=== PATIENT | female | born 1995 | race Two or more races ===

== ENCOUNTER 2022-12-24 08:56 | Outpatient (CLI) | payer OTHER ==
[~2022-12-24 08:56] MED LIST: DEPAKOTE ER500 MG
== END 2022-12-24 09:46 | disposition home or self-care (01) ==
LOC: PRENATAL 08:56
PROVIDERS: ATTEND Obstetrics & Gynecology Maternal & Fetal Medicine
DX: O35.3XX0 Maternal care for (suspected) damage to fetus from viral disease in mother, not applicable or unspecified (principal); O44.00 Complete placenta previa NOS or without hemorrhage, unspecified trimester; Z3A.19 19 weeks gestation of pregnancy

== ENCOUNTER 2023-03-25 08:19 | Outpatient (CLI) | payer OTHER | END 2023-03-25 08:20 | disposition home or self-care (01) | LOC: PRENATAL 08:19 | PROVIDERS: ATTEND Obstetrics & Gynecology Maternal & Fetal Medicine | DX: O26.849 Uterine size-date discrepancy, unspecified trimester (principal); O36.8199 Decreased fetal movements, unspecified trimester, other fetus; Z3A.32 32 weeks gestation of pregnancy ==

== ENCOUNTER 2023-05-11 14:53 | Outpatient (CLI) | payer OTHER ==
[2023-05-11] MEDS ORDERED: PRENA1 CHEW TA1.4 MG PO (15:08)
[2023-05-11] MEDS ORDERED: SYNTHROID88 MCG PO (15:08)
[2023-05-11 15:24] LABS: HEMATOCRIT 31.4 % (36.0-45.00); HEMOGLOBIN 10.4 g/dL (12.0-15.00); MEAN CELL VOLUME 83.2 fL (80.00-100.00); MEAN CORPUSCULAR HEMOGLOBIN 27.6 pg (27.00-32.0); MEAN CORPUSCULAR HGB CONC 33.2 g/dl (32.0-36.0); PH,URINE 6.5 (5.0-8.0); PLATELET COUNT 95 K/uL (150-450); RED BLOOD COUNT 3.77 M/uL (4.00-6.00); RED CELL DISTRIBUTION WIDTH 16.3 % (11.5-14.5); URINE APPEARANCE Clear; URINE BILIRRUBIN Negative (NEGATIVE); URINE BLOOD Negative; URINE COLOR Yellow; URINE GLUCOSE Negative (NEGATIVE); URINE LEUKOCYTE Negative; URINE NITRATE Negative; URINE PROTEIN Trace (NEGATIVE); URINE UROBILINOGEN 0.2 E.U./dl
[2023-05-11 15:27] LABS: URINE BACTERIA 6600.7 uL (0.0-1933); URINE EPITHELIAL CELLS 36.4 uL (0.0-38.8); URINE RBC 34.9 uL (0.0-20.8); URINE WBC 59.3 uL (0.0-23.2)
[2023-05-11] MEDS ORDERED: RINGERS SOLUTION,LACTATED 1,000 ML IV SCH (15:45)
== END 2023-05-11 19:19 | disposition home or self-care (01) ==
LOC: OBS/DEL 14:53
PROVIDERS: Obstetrics & Gynecology; ATTEND Obstetrics & Gynecology
DX: O26.893 Other specified pregnancy related conditions, third trimester (principal); Z3A.38 38 weeks gestation of pregnancy; O26.849 Uterine size-date discrepancy, unspecified trimester; O36.8199 Decreased fetal movements, unspecified trimester, other fetus

== ENCOUNTER 2023-05-18 03:12 | Inpatient (IN) | payer OTHER ==
[~2023-05-18] VITALS: Ht 154.9 cm; Wt 3.2 kg
[~2023-05-18 03:12] MED LIST changes: +PRENA1 CHEW TA1.4 MG PO; +SYNTHROID88 MCG PO
[2023-05-18] MEDS ORDERED: RINGERS SOLUTION,LACTATED 1,000 ML IV SCH ×2 (03:30→14:00)
[2023-05-18 03:41] LABS: PH,URINE 6.5 (5.0-8.0); URINE APPEARANCE Clear; URINE BILIRRUBIN Negative (NEGATIVE); URINE BLOOD Negative; URINE COLOR Yellow; URINE GLUCOSE Negative (NEGATIVE); URINE LEUKOCYTE Negative; URINE NITRATE Negative; URINE PROTEIN Trace (NEGATIVE)
[2023-05-18 03:42] LABS: URINE BACTERIA 336.4 uL (0.0-1933); URINE EPITHELIAL CELLS 9.4 uL (0.0-38.8); URINE RBC 3.3 uL (0.0-20.8); URINE WBC 5.2 uL (0.0-23.2)
[2023-05-18 03:59] LABS: HEMATOCRIT 32.9 % (36.0-45.00); HEMOGLOBIN 10.7 g/dL (12.0-15.00); MEAN CELL VOLUME 83.4 fL (80.00-100.00); MEAN CORPUSCULAR HEMOGLOBIN 27.2 pg (27.00-32.0); MEAN CORPUSCULAR HGB CONC 32.6 g/dl (32.0-36.0); RED BLOOD COUNT 3.95 M/uL (4.00-6.00); RED CELL DISTRIBUTION WIDTH 16.8 % (11.5-14.5)
[2023-05-18 04:00] LABS: PLATELET COUNT 94 K/uL (150-450)
[2023-05-18] MEDS ORDERED: AMPICILLIN SODIUM 2,000 MG VIAL ONE (04:08)
[2023-05-18 04:10] LABS: INR 1.01; PARTIAL THROMBOPLASTIN TIME 34.2 SECONDS (22.0-34.0); PROTHROMBIN TIME 10.6 SECONDS (9.0-11.5)
[2023-05-18] MEDS ORDERED: AMPICILLIN SODIUM 2,000 MG VIAL IV STA (04:12)
[2023-05-18 04:13] LABS: ALBUMIN 2.6 gm/dL (3.4-5.0); BILIRUBIN TOTAL 0.28 mg/dL (0.3-1.2); CALCIUM 9.1 mg/dL (8.5-10.1); CREATININE SERUM 0.72 mg/dL (0.55-1.02); GFR 97.17; GLOBULINA 3.5 G/DL (2.4-3.5); POTASSIUM 4.28 mEq/L (3.5-5.1); TOTAL PROTEIN 6.1 gm/dL (6.4-8.2)
[2023-05-18] MEDS ORDERED: AMPICILLIN SODIUM 1,000 MG VIAL IV SCH (08:00)
[2023-05-18] MEDS ORDERED: CEFAZOLIN SODIUM 1,000 MG VIAL ONE (11:54)
[2023-05-18] MEDS ORDERED: OXYTOCIN 10 UNITS/ML VIAL ONE ×2 (11:55→16:16)
[2023-05-18] MEDS ORDERED: ERYTHROMYCIN BASE 1 GM TUBE OP ONE ×2 (11:55→14:45)
[2023-05-18] MEDS ORDERED: METHYLERGONOVINE MALEATE 0.2 MG/ML AMPUL ONE (13:40)
[2023-05-18] MEDS ORDERED: KETOROLAC TROMETHAMINE 60 MG VIAL IM STA (13:52)
[2023-05-18] MEDS ORDERED: PROMETHAZINE HCL 25 MG/ML AMPUL IM PRN (14:00)
[2023-05-18] MEDS ORDERED: CHLORHEXIDINE GLUCONATE 120 ML BOTTLE TP SCH (14:00)
[2023-05-18] MEDS ORDERED: OXYTOCIN 1,000 ML IV SCH (14:00)
[2023-05-18] MEDS ORDERED: MEPERIDINE HCL/PF 50 MG/ML VIAL IM PRN (14:00)
[2023-05-18] MEDS ORDERED: ERYTHROMYCIN BASE 1 GM TUBE OP SCH (14:00)
[2023-05-18] MEDS ORDERED: METHYLERGONOVINE MALEATE 0.2 MG TABLET PO ONE (14:45)
[2023-05-18] MEDS ORDERED: OXYTOCIN 10 UNIT/ML (10ML) IV ONE (14:45)
[2023-05-18 14:48] LABS: ABG PH 7.319 (7.35-7.45); ABG PO2 22.9 mmHg (80-100); BASE EXCESS -3.2 mmol/l; BICARBONATE 23.1 mmol/l (23-25); Tco2 24.5 mmol/l
[2023-05-18 14:49] LABS: o2 21 %
[2023-05-18] MEDS ORDERED: KETOROLAC TROMETHAMINE 60 MG VIAL IM ONE (15:35)
[2023-05-18] MEDS ORDERED: ONDANSETRON HCL 2 MG/ML VIAL ONE (15:36)
[2023-05-18] MEDS ORDERED: AMPICILLIN SODIUM 1,000 MG VIAL ONE (16:02)
[2023-05-18 20:31] LABS: HEMATOCRIT 33.7 % (36.0-45.00); HEMOGLOBIN 10.9 g/dL (12.0-15.00); MEAN CELL VOLUME 83.2 fL (80.00-100.00); MEAN CORPUSCULAR HEMOGLOBIN 26.8 pg (27.00-32.0); MEAN CORPUSCULAR HGB CONC 32.3 g/dl (32.0-36.0); RED BLOOD COUNT 4.05 M/uL (4.00-6.00); RED CELL DISTRIBUTION WIDTH 16.6 % (11.5-14.5)
[2023-05-18 20:32] LABS: PLATELET COUNT 89 K/uL (150-450)
[2023-05-19] MEDS ORDERED: OxyCODONE HCL/APAP UD (PERCOCET) PO PRN (09:00)
== END 2023-05-20 16:26 | disposition home or self-care (01) | DRG 788 ==
LOC: OBS/DEL 03:12 → O/R 04:05 → OBS/DEL 04:05 → OB/GYN 04:05 → LDR 04:05 → O/R 13:13 → OB/GYN 14:54
PROVIDERS: Specialist; ADMIT Obstetrics & Gynecology; ATTEND Obstetrics & Gynecology
PROC: 4A1HXCZ Monitoring of Products of Conception, Cardiac Rate, External Approach (ICD-10-PCS; 2023-05-18)
PROC: 10D00Z1 Extraction of Products of Conception, Low, Open Approach (ICD-10-PCS; principal; 2023-05-18 14:00)
DX: O33.8 Maternal care for disproportion of other origin (principal); O42.02 Full-term premature rupture of membranes, onset of labor within 24 hours of rupture; O36.8130 Decreased fetal movements, third trimester, not applicable or unspecified; Z3A.38 38 weeks gestation of pregnancy; Z37.0 Single live birth; Z20.822 Contact with and (suspected) exposure to COVID-19